=== PATIENT | male | born 1960 | race Caucasian/White ===

== ENCOUNTER 2023-03-10 10:54 | Outpatient (CLI) | payer MEDICAID ==
[~2023-03-10] VITALS: Ht 170.2 cm; Wt 142.0 kg
[2023-03-10] MEDS ORDERED: NO HOME MEDS (11:55)
[2023-03-10 12:38] LABS: BASOPHILS # (AUTO) 0.1 X10'3 (0-0.2); BASOPHILS % (AUTO) 1.1 % (0-1); EOSINOPHILS # (AUTO) 0.3 X10'3 (0-0.9); EOSINOPHILS % (AUTO) 3.5 % (0-6); LYMPHOCYTES # (AUTO) 1.8 X10'3 (1.1-4.8); LYMPHOCYTES % (AUTO) 24.2 % (21-51); MEAN CORPUSCULAR HEMOGLOBIN 30.8 PG (27.0-31.0); MEAN CORPUSCULAR HGB CONC 33.1 g/dL (33.0-36.5); MEAN CORPUSCULAR VOLUME 93.2 FL (78-98); MEAN PLATELET VOLUME 8.3 FL (7.4-10.4); MONOCYTES # (AUTO) 0.6 X10'3 (0-0.9); MONOCYTES % (AUTO) 8.8 % (2-12); NEUTROPHILS # (AUTO) 4.6 X10'3 (1.8-7.7); NEUTROPHILS % (AUTO) 62.4 % (42-75); PRE OP HEMATOCRIT 50.5 % (42.0-52.0); PRE OP HEMOGLOBIN 16.7 g/dL (14.0-17.9); PRE OP PLATELET COUNT 293 X10'3 (140-440); PRE OP WHITE BLOOD COUNT 7.3 10'3 (4.8-10.8); RED BLOOD COUNT 5.42 X10'6 (4.70-6.10); RED CELL DISTRIBUTION WIDTH 14.2 % (11.5-14.5)
[2023-03-10 12:50] LABS: ALBUMIN 3.2 G/DL (3.4-5.0); ALBUMIN/GLOBULIN RATIO 0.6 (1.1-1.5); ALKALINE PHOSPHATASE 79 IU/L (46-116); BLOOD UREA NITROGEN 13 MG/DL (7-18); BUN/CREATININE RATIO 14.1 (10.0-20.0); CALCIUM 8.7 MG/DL (8.5-10.1); CHLORIDE 104 MMOL/L (99-107); CREATININE 0.92 MG/DL (0.60-1.10); PRE OP ALT 28 U/L (30-65); PRE OP ANION GAP 7 (8-16); PRE OP AST 31 U/L (10-37); PRE OP BILIRUB, TOTAL 0.4 MG/DL (0.0-1.0); PRE OP GLUCOSE 117 MG/DL (70-104); PRE OP POTASSIUM 3.7 MMOL/L (3.4-5.1); PRE OP SODIUM 138 MMOL/L (135-145); TOTAL CARBON DIOXIDE 27.4 MMOL/L (24-32); TOTAL PROTEIN 8.4 G/DL (6.4-8.2); eCRCL 78 ML/MIN; eGFR 83 ML/MIN
[2023-03-11] MEDS ORDERED: ceFOXitin 2GM-NS 100mL ADDvant 100 ML IV ONE (05:30)
[2023-03-11] MEDS ORDERED: famotidine 20mg tablet PO ONE (05:30)
[2023-03-11] MEDS ORDERED: ringers solution, lacted 1,000 ML IV SCH (05:30)
== END 2023-03-10 23:59 | disposition home or self-care (01) ==
LOC: LAB 10:54 → EDSTATUS 03-11 09:30
PROVIDERS: ATTEND Surgery
DX: Z01.818 Encounter for other preprocedural examination (principal); K42.9 Umbilical hernia without obstruction or gangrene; I10 Essential (primary) hypertension; E66.9 Obesity, unspecified; Z68.42 Body mass index [BMI] 45.0-49.9, adult; F32.A Depression, unspecified; Z96.612 Presence of left artificial shoulder joint; Z96.651 Presence of right artificial knee joint; Z98.890 Other specified postprocedural states; Z90.49 Acquired absence of other specified parts of digestive tract; Z79.899 Other long term (current) drug therapy; Z72.89 Other problems related to lifestyle; Z82.61 Family history of arthritis; Z82.49 Family history of ischemic heart disease and other diseases of the circulatory system
CPT/HCPCS: 36415; 80053; 85025; 93005; J7120; J0694

== ENCOUNTER 2024-01-06 10:42 | Inpatient (IN) | payer MEDICAID ==
[~2024-01-06] VITALS: Ht 167.6 cm; Wt 140.9 kg
[2024-01-06] VITALS (29 sets, daily range): BP systolic 145–183; BP diastolic 74–107; PULSE 57–75; RESP 12–19; TEMP 97–98; O2SAT 94–99
[~2024-01-06 10:42] MED LIST: AMLO-381 PO; FURO20TA4 PO; METF-900 PO
[2024-01-06] MEDS: famotidine 20mg tablet PO ONE (11:58)
[2024-01-06] MEDS: Cefazolin 3 GM/100ML NS IVPB 100 ML IV ONE (11:59)
[2024-01-06] MEDS: ringers solution, lacted 1,000 ML IV SCH ×2 (11:59→18:05)
[2024-01-06 12:23] LABS: BASOPHILS # (AUTO) 0.1 X10'3 (0-0.2); EOSINOPHILS # (AUTO) 0.3 X10'3 (0-0.9); EOSINOPHILS % (AUTO) 5.2 % (0-6); LYMPHOCYTES # (AUTO) 1.9 X10'3 (1.1-4.8); LYMPHOCYTES % (AUTO) 30.1 % (21-51); MEAN CORPUSCULAR HGB CONC 32.4 g/dL (33.0-36.5); MEAN CORPUSCULAR VOLUME 92.5 FL (78-98); MEAN PLATELET VOLUME 7.9 FL (7.4-10.4); MONOCYTES # (AUTO) 0.7 X10'3 (0-0.9); MONOCYTES % (AUTO) 10.7 % (2-12); NEUTROPHILS # (AUTO) 3.3 X10'3 (1.8-7.7); PRE OP HEMATOCRIT 47.2 % (42.0-52.0); PRE OP HEMOGLOBIN 15.3 g/dL (14.0-17.9); PRE OP PLATELET COUNT 227 X10'3 (140-440); PRE OP WHITE BLOOD COUNT 6.3 10'3 (4.8-10.8); RED BLOOD COUNT 5.11 X10'6 (4.70-6.10); RED CELL DISTRIBUTION WIDTH 14.5 % (11.5-14.5)
[2024-01-06 12:33] LABS: ALBUMIN 2.8 G/DL (3.4-5.0); ALBUMIN/GLOBULIN RATIO 0.6 (1.1-1.5); ALKALINE PHOSPHATASE 82 IU/L (46-116); BLOOD UREA NITROGEN 16 MG/DL (7-18); CALCIUM 8.6 MG/DL (8.5-10.1); CHLORIDE 103 MMOL/L (99-107); CREATININE 0.89 MG/DL (0.60-1.10); PRE OP ALT 21 U/L (30-65); PRE OP ANION GAP 4 (8-16); PRE OP AST 22 U/L (10-37); PRE OP BILIRUB, TOTAL 0.3 MG/DL (0.0-1.0); PRE OP GLUCOSE 111 MG/DL (70-104); PRE OP POTASSIUM 3.9 MMOL/L (3.4-5.1); PRE OP SODIUM 138 MMOL/L (135-145); TOTAL CARBON DIOXIDE 30.8 MMOL/L (24-32); TOTAL PROTEIN 7.4 G/DL (6.4-8.2); eCRCL 80 ML/MIN; eGFR 87 ML/MIN
[2024-01-06] MEDS ORDERED: ondansetron/PF 4mg/2ml inj IV PRN ×2 (15:45→18:05)
[2024-01-06] MEDS ORDERED: ringers solution, lacted 1,000 ML IV SCH (15:45)
[2024-01-06] MEDS ORDERED: meperidine/PF 25mg/ml syringe IV PRN ×5 (15:45→18:05)
[2024-01-06] MEDS ORDERED: proCHLORperazine 10 MG/2 ml inj IV PRN ×2 (15:45→18:05)
[2024-01-06] MEDS ORDERED: morphine 4 MG/ML inj SYRINge IV PRN ×2 (15:45→18:05)
[2024-01-06] MEDS ORDERED: morphine 2 MG/ML inj. syringe IV PRN ×2 (15:45→18:05)
[2024-01-06] MEDS ORDERED: BUPIVAcaine 2.5mg/ml inj 50ml vial (contains preservative) ONE ×2 (15:47→16:27)
[2024-01-06] MEDS ORDERED: LIDOcaine 1% (10mg/ml)w/preservative inj. 20ml MDV ONE ×3 (15:47→16:27)
[2024-01-06] MEDS ORDERED: BUPIVACAINE liposomal/PF 13.3 MG/ML vial IM ONE (15:52)
[2024-01-06] MEDS ORDERED: fentaNYL/PF 50MCG/1 ML 2ML syringe ONE ×2 (15:59→16:33)
[2024-01-06] MEDS ORDERED: midazolam 1 mg/ML 2ml injection ONE (15:59)
[2024-01-06] MEDS ORDERED: propofol inj 20 ML IV ONE (16:00)
[2024-01-06] MEDS ORDERED: rocuronium 10mg/ml inj IV ONE (16:00)
[2024-01-06] MEDS ORDERED: sevoflurane 250ml liquid IH ONE (16:02)
[2024-01-06] MEDS: BUPIVAcaine 2.5mg/ml inj 50ml vial (contains preservative) SQ ONE (16:35)
[2024-01-06] MEDS ORDERED: glycopyrrolate 0.2mg/ml inj ONE (17:16)
[2024-01-06] MEDS ORDERED: acetaminophen 1,000mg/100ml IV 100 ML IV ONE (17:16)
[2024-01-06] MEDS ORDERED: neostigmine methylsulfate 1 MG/ML 10ml vial ONE (17:16)
[2024-01-06] MEDS ORDERED: naloxone 0.4 mg/ml inj IV PRN (17:30)
[2024-01-06] MEDS: meperidine/PF 25mg/ml syringe IV PRN (18:21)
[2024-01-06] MEDS: hydrALAZINE 20mg/ml inj. IV PRN (19:30)
[2024-01-06] MEDS: furosemide 20MG tablet PO SCH (20:45)
[2024-01-06] MEDS: heparin, porcine 5000 units/ml vial SQ SCH (20:48)
[2024-01-06] MEDS: oxyCODONE/APAP 10/325mg tablet PO PRN (23:35)
[2024-01-07] VITALS (7 sets, daily range): BP systolic 142–202; BP diastolic 68–99; PULSE 71–89; RESP 16–19; TEMP 98–98.7; O2SAT 93–96
[2024-01-07] MEDS: amLODIPine 5mg tablet PO SCH (00:01)
[2024-01-07] MEDS: amLODIPine 5mg tablet PO ONE (00:44)
[2024-01-07] MEDS: morphine 2 MG/ML inj. syringe IV PRN (02:56)
[2024-01-07] MEDS: losartan 50mg tablet PO SCH (08:31)
[2024-01-07] MEDS: metFORMIN 500mg tablet PO SCH (09:00)
[2024-01-07 10:55] LABS: BASOPHILS % (AUTO) 0.5 % (0-1); EOSINOPHILS # (AUTO) 0.2 X10'3 (0-0.9); EOSINOPHILS % (AUTO) 2.5 % (0-6); HEMATOCRIT 50.8 % (42.0-52.0); HEMOGLOBIN 17.1 g/dl (14.0-17.9); LYMPHOCYTES # (AUTO) 1.4 X10'3 (1.1-4.8); LYMPHOCYTES % (AUTO) 16.2 % (21-51); MEAN CORPUSCULAR HEMOGLOBIN 31.2 PG (27.0-31.0); MEAN CORPUSCULAR HGB CONC 33.7 g/dL (33.0-36.5); MEAN CORPUSCULAR VOLUME 92.7 FL (78-98); MEAN PLATELET VOLUME 8.2 FL (7.4-10.4); MONOCYTES # (AUTO) 0.6 X10'3 (0-0.9); MONOCYTES % (AUTO) 6.7 % (2-12); NEUTROPHILS # (AUTO) 6.2 X10'3 (1.8-7.7); NEUTROPHILS % (AUTO) 74.1 % (42-75); PLATELET COUNT 287 X10'3 (140-440); RED BLOOD COUNT 5.49 X10'6 (4.70-6.10); RED CELL DISTRIBUTION WIDTH 14.8 % (11.5-14.5); WHITE BLOOD COUNT 8.4 X10'3 (4.5-11.0)
[2024-01-07 11:04] LABS: ANION GAP 9 (8-16); BLOOD UREA NITROGEN 14 MG/DL (7-18); BUN/CREATININE RATIO 15.2 (10.0-20.0); CALCIUM 9.2 MG/DL (8.5-10.1); CHLORIDE 103 MMOL/L (99-107); CREATININE 0.92 MG/DL (0.60-1.10); GLUCOSE 113 MG/DL (70-104); POTASSIUM 4.3 MMOL/L (3.5-5.1); SODIUM 138 MMOL/L (135-145); TOTAL CARBON DIOXIDE 25.6 MMOL/L (24-32); eCRCL 75 ML/MIN; eGFR 83 ML/MIN
[2024-01-07] MEDS: ringers solution, lacted 1,000 ML IV SCH (11:32)
[2024-01-07] MEDS: hydrALAZINE 20mg/ml inj. IV ONE (11:57)
[2024-01-07] MEDS: hydrALAZINE 20mg/ml inj. IV PRN (17:31)
[2024-01-07] MEDS: mag hydrox/Alum hydrox/simeth 30ml oral suspension PO PRN (18:01)
[2024-01-07] MEDS: acetaminophen 325mg tablet PO PRN (19:46)
[2024-01-07] MEDS: oxyCODONE/APAP 5-325mg tablet PO PRN (23:10)
[2024-01-08 00:06] VITALS: BP 161/88
[2024-01-08] MEDS: ondansetron/PF 4mg/2ml inj IV PRN (05:34)
[2024-01-08 07:55] VITALS: BP 196/99; PULSE 75; RESP 16; TEMP 98.6; O2SAT 92
[2024-01-08 09:00] VITALS: RESP 16; O2SAT 94
[2024-01-08 10:00] VITALS: BP 182/91; PULSE 87; RESP 16; TEMP 98.6; O2SAT 95
[2024-01-08 18:00] VITALS: BP 136/85; PULSE 90; RESP 18; TEMP 98.3; O2SAT 92
[2024-01-08 19:00] VITALS: RESP 18; O2SAT 97
[2024-01-08] MEDS: magnesium hydroxide 30ml (MOM) UD suspension PO SCH (20:00)
[2024-01-08] MEDS ORDERED: HYDROmorphone inj. 0.5 MG/0.5 ML DISP.SYRIN IV PRN (23:35)
[2024-01-09 00:35] VITALS: RESP 18; O2SAT 97
== END 2024-01-09 08:09 | disposition left against medical advice (07) | DRG 228 ==
LOC: PRE-OP 10:42 → OBSVTOIN 17:41 → ORTHO 4S 17:41
PROVIDERS: ADMIT Surgery; ATTEND Surgery
PROC: 3E0T3BZ Introduction of Anesthetic Agent into Peripheral Nerves and Plexi, Percutaneous Approach (ICD-10-PCS; 2024-01-06)
PROC: 0WUF4JZ Supplement Abdominal Wall with Synthetic Substitute, Percutaneous Endoscopic Approach (ICD-10-PCS; 2024-01-06)
PROC: 3E0T3BZ Introduction of Anesthetic Agent into Peripheral Nerves and Plexi, Percutaneous Approach (ICD-10-PCS; 2024-01-06)
PROC: 8E0W4CZ Robotic Assisted Procedure of Trunk Region, Percutaneous Endoscopic Approach (ICD-10-PCS; principal; 2024-01-06 16:02)
DX: K42.0 Umbilical hernia with obstruction, without gangrene (principal); Z53.21 Procedure and treatment not carried out due to patient leaving prior to being seen by health care provider; Z79.84 Long term (current) use of oral hypoglycemic drugs; Z90.49 Acquired absence of other specified parts of digestive tract; Z79.899 Other long term (current) drug therapy
CPT/HCPCS: 36415; 80048; 80053; 82948; 85025; 87081; 93005; A4215; A4615; A4618; A6590; C1781; C9290; G0378; J0131; J0360; J0690; J1644; J2003; J2175; J2250; J2270; J2405; J2704; J2710; J3010; J3490; J7030; J7120

== ENCOUNTER 2024-01-10 14:14 | Inpatient (IN) | payer MEDICAID ==
[~2024-01-10] VITALS: Ht 170.2 cm; Wt 135.0 kg
[2024-01-10] MEDS ORDERED: magnesium Cl slow-release 64mg tablet PO PRN (15:30)
[2024-01-10] MEDS ORDERED: magnesium sulf-water 2g/50mL 50 ML IV PRN (15:30)
[2024-01-10] MEDS ORDERED: magnesium hydroxide 30ml (MOM) UD suspension PO PRN (15:30)
[2024-01-10] MEDS ORDERED: ondansetron/PF 4mg/2ml inj IV PRN (15:30)
[2024-01-10] MEDS ORDERED: magnesium sulf-water 4G/100mL 100 ML IV PRN (15:30)
[2024-01-10] MEDS ORDERED: mag hydrox/Alum hydrox/simeth 30ml oral suspension PO PRN (15:30)
[2024-01-10] MEDS ORDERED: potassium Cl 20 mEq SR tablet PO PRN ×2 (15:30)
[2024-01-10] MEDS ORDERED: acetaminophen 325mg tablet PO PRN (15:30)
[2024-01-10] MEDS: dextrose 5%-1/2 normal saline 1,000 ML IV SCH (16:28)
[2024-01-10] MEDS: pantoprazole 40 MG vial IV STA (16:28)
[2024-01-10] MEDS ORDERED: chlorproMAZINE 25mg/ml inj. IM PRN (16:30)
[2024-01-10] MEDS ORDERED: glucagon, human recombinant 1mg kit SUBCUT PRN (16:30)
[2024-01-10] MEDS ORDERED: dextrose 50%-water 50ml dispensing syringe IV PRN ×2 (16:30)
[2024-01-10] MEDS ORDERED: DEXTROSE 15 GM of carb/4 tabs (each vial/BOTTLE has 4 tablets) PO PRN ×2 (16:30)
[2024-01-10] MEDS: INSULIN LISPRO 100 UNIT/ML INSULN.PEN MULTI-DOSE SQ SCH (17:00)
[2024-01-10] MEDS: chlorproMAZINE 25mg/ml inj. IV ONE (17:00)
[2024-01-10 18:00] VITALS: BP 102/65; PULSE 76; RESP 18; TEMP 97.2; O2SAT 94
[2024-01-10] MEDS: K and/or MAG REPLACEMENT MC SCH (19:41)
[2024-01-10 20:00] VITALS: RESP 18; O2SAT 94
[2024-01-10] MEDS: docusate sod 100mg capsule PO SCH (21:18)
[2024-01-10] MEDS: diatr meglu/diatrizoate 30ml oral sol.-(3 dose) bottle PO SCH (21:28)
[2024-01-10 22:00] VITALS: BP 137/77; PULSE 92; RESP 18; TEMP 98; O2SAT 94
[2024-01-11 02:52] LABS: BASOPHILS % (AUTO) 0.6 % (0-1); EOSINOPHILS # (AUTO) 0.5 X10'3 (0-0.9); EOSINOPHILS % (AUTO) 6.1 % (0-6); HEMATOCRIT 48.4 % (42.0-52.0); HEMOGLOBIN 16.4 g/dl (14.0-17.9); LYMPHOCYTES # (AUTO) 1.4 X10'3 (1.1-4.8); LYMPHOCYTES % (AUTO) 16.9 % (21-51); MEAN CORPUSCULAR HEMOGLOBIN 31.4 PG (27.0-31.0); MEAN CORPUSCULAR HGB CONC 33.8 g/dL (33.0-36.5); MEAN CORPUSCULAR VOLUME 92.8 FL (78-98); MEAN PLATELET VOLUME 8.4 FL (7.4-10.4); MONOCYTES # (AUTO) 0.9 X10'3 (0-0.9); MONOCYTES % (AUTO) 11.2 % (2-12); NEUTROPHILS # (AUTO) 5.4 X10'3 (1.8-7.7); NEUTROPHILS % (AUTO) 65.2 % (42-75); PLATELET COUNT 261 X10'3 (140-440); RED BLOOD COUNT 5.21 X10'6 (4.70-6.10); RED CELL DISTRIBUTION WIDTH 14.6 % (11.5-14.5); WHITE BLOOD COUNT 8.3 X10'3 (4.5-11.0)
[2024-01-11 03:07] LABS: ALANINE AMINOTRANSFERASE 15 U/L (12-78); ALBUMIN 2.6 G/DL (3.4-5.0); ALBUMIN/GLOBULIN RATIO 0.6 (1.1-1.5); ALKALINE PHOSPHATASE 57 IU/L (46-116); ANION GAP 5 (8-16); ASPARTATE AMINO TRANSFERASE 15 U/L (10-37); BILIRUBIN,TOTAL 0.9 MG/DL (0.1-1.0); BLOOD UREA NITROGEN 21 MG/DL (7-18); BUN/CREATININE RATIO 18.1 (10.0-20.0); CHLORIDE 97 MMOL/L (99-107); CREATININE 1.16 MG/DL (0.60-1.10); GLUCOSE 149 MG/DL (70-104); MAGNESIUM 2.4 MG/DL (1.5-2.4); POTASSIUM 3.5 MMOL/L (3.5-5.1); SODIUM 136 MMOL/L (135-145); TOTAL CARBON DIOXIDE 34.4 MMOL/L (24-32); TOTAL PROTEIN 6.7 G/DL (6.4-8.2); eCRCL 62 ML/MIN; eGFR 64 ML/MIN
[2024-01-11 03:21] LABS: HEMOGLOBIN A1C 5.8 % (4.5-6.2)
[2024-01-11 06:00] VITALS: BP 148/93; PULSE 75; RESP 18; TEMP 97.4; O2SAT 94
[2024-01-11] MEDS ORDERED: iohexol 300mg/ml 100ml inj. ONE (10:34)
[2024-01-11 11:00] VITALS: BP 161/84; PULSE 72; RESP 18; TEMP 97.9; O2SAT 93
[2024-01-11] MEDS: enoxaparin 40mg/0.4ml syringe SUBCUT SCH (13:11)
[2024-01-11] MEDS: metoclopramide 5 mg/ml inj IV SCH (13:12)
[2024-01-11] MEDS: morphine 2 MG/ML inj. syringe IV PRN (16:36)
[2024-01-11 20:00] VITALS: RESP 14; O2SAT 94
[2024-01-11] MEDS: LORazepam 2 mg/ml vial IV ONE (22:05)
[2024-01-11] MEDS: LidoCAINE 2% Topical Jelly 11mL syringe (UROJET) TOP ONE (22:10)
[2024-01-11] MEDS: hydrALAZINE 20mg/ml inj. IV PRN (23:36)
[2024-01-12 00:36] VITALS: BP 132/74
[2024-01-12 06:12] LABS: BASOPHILS % (AUTO) 0.5 % (0-1); EOSINOPHILS # (AUTO) 0.5 X10'3 (0-0.9); EOSINOPHILS % (AUTO) 5.6 % (0-6); HEMATOCRIT 46.9 % (42.0-52.0); HEMOGLOBIN 15.8 g/dl (14.0-17.9); LYMPHOCYTES # (AUTO) 1.1 X10'3 (1.1-4.8); LYMPHOCYTES % (AUTO) 12.7 % (21-51); MEAN CORPUSCULAR HEMOGLOBIN 31.2 PG (27.0-31.0); MEAN CORPUSCULAR HGB CONC 33.8 g/dL (33.0-36.5); MEAN CORPUSCULAR VOLUME 92.4 FL (78-98); MEAN PLATELET VOLUME 8.6 FL (7.4-10.4); MONOCYTES % (AUTO) 11.9 % (2-12); NEUTROPHILS % (AUTO) 69.3 % (42-75); PLATELET COUNT 254 X10'3 (140-440); RED BLOOD COUNT 5.07 X10'6 (4.70-6.10); RED CELL DISTRIBUTION WIDTH 14.4 % (11.5-14.5); WHITE BLOOD COUNT 8.7 X10'3 (4.5-11.0)
[2024-01-12 06:34] LABS: ALANINE AMINOTRANSFERASE 12 U/L (12-78); ALBUMIN 2.5 G/DL (3.4-5.0); ALBUMIN/GLOBULIN RATIO 0.6 (1.1-1.5); ALKALINE PHOSPHATASE 54 IU/L (46-116); ANION GAP 5 (8-16); ASPARTATE AMINO TRANSFERASE 19 U/L (10-37); BILIRUBIN,TOTAL 0.7 MG/DL (0.1-1.0); BLOOD UREA NITROGEN 17 MG/DL (7-18); BUN/CREATININE RATIO 16.5 (10.0-20.0); CALCIUM 8.2 MG/DL (8.5-10.1); CHLORIDE 95 MMOL/L (99-107); CREATININE 1.03 MG/DL (0.60-1.10); GLUCOSE 130 MG/DL (70-104); MAGNESIUM 2.3 MG/DL (1.5-2.4); POTASSIUM 3.4 MMOL/L (3.5-5.1); SODIUM 133 MMOL/L (135-145); TOTAL PROTEIN 6.9 G/DL (6.4-8.2); eCRCL 70 ML/MIN; eGFR 73 ML/MIN
[2024-01-12 12:00] VITALS: BP 147/69; PULSE 67; RESP 14; TEMP 98.3; O2SAT 90
[2024-01-12 18:00] VITALS: BP 157/81; PULSE 75; RESP 18; TEMP 97.8; O2SAT 92
[2024-01-12 20:00] VITALS: RESP 18; O2SAT 93
[2024-01-12] MEDS: potassium 20mEq/D5LR 1,000 ML IV SCH (20:02)
[2024-01-12 22:00] VITALS: BP 135/83; PULSE 70; RESP 16; TEMP 97.4; O2SAT 93
[2024-01-12] MEDS: potassium Cl 40MEQ/1/2NS 520ml 520 ML IV PRN (22:42)
[2024-01-13 06:00] VITALS: BP 163/80; PULSE 66; RESP 18; TEMP 96.5; O2SAT 94
[2024-01-13 06:30] LABS: BASOPHILS % (AUTO) 0.5 % (0-1); EOSINOPHILS # (AUTO) 0.6 X10'3 (0-0.9); EOSINOPHILS % (AUTO) 8.4 % (0-6); HEMATOCRIT 44.1 % (42.0-52.0); LYMPHOCYTES # (AUTO) 1.1 X10'3 (1.1-4.8); LYMPHOCYTES % (AUTO) 15.6 % (21-51); MEAN CORPUSCULAR HEMOGLOBIN 31.5 PG (27.0-31.0); MEAN CORPUSCULAR VOLUME 92.7 FL (78-98); MEAN PLATELET VOLUME 8.4 FL (7.4-10.4); MONOCYTES # (AUTO) 0.8 X10'3 (0-0.9); NEUTROPHILS # (AUTO) 4.3 X10'3 (1.8-7.7); NEUTROPHILS % (AUTO) 63.5 % (42-75); PLATELET COUNT 235 X10'3 (140-440); RED BLOOD COUNT 4.76 X10'6 (4.70-6.10); RED CELL DISTRIBUTION WIDTH 14.2 % (11.5-14.5); WHITE BLOOD COUNT 6.8 X10'3 (4.5-11.0)
[2024-01-13 06:40] LABS: ALANINE AMINOTRANSFERASE 13 U/L (12-78); ALBUMIN 2.3 G/DL (3.4-5.0); ALBUMIN/GLOBULIN RATIO 0.6 (1.1-1.5); ALKALINE PHOSPHATASE 49 IU/L (46-116); ANION GAP 6 (8-16); ASPARTATE AMINO TRANSFERASE 14 U/L (10-37); BILIRUBIN,TOTAL 0.6 MG/DL (0.1-1.0); BLOOD UREA NITROGEN 12 MG/DL (7-18); CALCIUM 8.2 MG/DL (8.5-10.1); CHLORIDE 102 MMOL/L (99-107); GLUCOSE 111 MG/DL (70-104); MAGNESIUM 2.4 MG/DL (1.5-2.4); POTASSIUM 3.6 MMOL/L (3.5-5.1); SODIUM 137 MMOL/L (135-145); TOTAL CARBON DIOXIDE 29.1 MMOL/L (24-32); TOTAL PROTEIN 6.3 G/DL (6.4-8.2); eCRCL 90 ML/MIN; eGFR > 90 ML/MIN
[2024-01-13] MEDS ORDERED: acetaminophen 325mg tablet PO PRN (09:00)
== END 2024-01-13 11:05 | disposition home or self-care (01) | DRG 247 ==
LOC: ER 14:14 → SUR 3N 15:30
PROVIDERS: ADMIT Internal Medicine; ATTEND Internal Medicine
PROC: 0D9670Z Drainage of Stomach with Drainage Device, Via Natural or Artificial Opening (ICD-10-PCS; principal; 2024-01-10)
PROC: BW211ZZ Computerized Tomography (CT Scan) of Abdomen and Pelvis using Low Osmolar Contrast (ICD-10-PCS; 2024-01-11)
DX: K56.609 Unspecified intestinal obstruction, unspecified as to partial versus complete obstruction (principal); E11.9 Type 2 diabetes mellitus without complications; E66.01 Morbid (severe) obesity due to excess calories; I10 Essential (primary) hypertension; K56.7 Ileus, unspecified; F41.9 Anxiety disorder, unspecified; Z79.84 Long term (current) use of oral hypoglycemic drugs; Z79.899 Other long term (current) drug therapy; Z91.199 Patient's noncompliance with other medical treatment and regimen due to unspecified reason; Z68.42 Body mass index [BMI] 45.0-49.9, adult
CPT/HCPCS: 36415; 74018; 74177; 80053; 82948; 83036; 83735; 84145; 85025; 87081; 99285; A4615; A6446; G0378; J0360; J1650; J1815; J2270; J2470; J2765; J3230; J3480; J7120; Q9963; Q9967